=== PATIENT | male | born 1990 | race African-American/Black ===

== ENCOUNTER 2019-06-15 03:14 | Emergency (ER) | payer SELFPAY ==
[~2019-06-15] VITALS: Ht 180.3 cm; Wt 118.0 kg
[2019-06-15 03:17] VITALS: BP 146/91
== END 2019-06-15 03:55 | disposition left against medical advice (07) ==
LOC: ER 03:14
DX: F10.10 Alcohol abuse, uncomplicated (principal); Z53.21 Procedure and treatment not carried out due to patient leaving prior to being seen by health care provider